=== PATIENT | male | born 1965 | race Hispanic/Latino ===

== ENCOUNTER 2017-05-04 16:53 | Observation (INO) | payer OTHER ==
[2017-05-04] MEDS ORDERED: Sodium Chloride 0.9% 1,000 ML IV STA (17:10)
[2017-05-04] MEDS ORDERED: Iohexol 240 (50 ml) PO ONE (17:10)
--- NOTE | 2017-05-04 17:17 | ED PDOC ---
HPI: Abdomen Time Seen by Provider: 05/04/17 17:01 Chief Complaint (Nursing): Abdominal Pain Chief Complaint (Provider): Abdominal Pain History Per: Patient History/Exam Limitations: no limitations Onset/Duration Of Symptoms: Days Current Symptoms Are (Timing): Still Present Location Of Pain/Discomfort: LLQ Associated Symptoms: Nausea, Diarrhea, Back Pain, Urinary Symptoms Additional Complaint(s): Richard Goodson, 51 year old male presents to the ED for left lower quadrant pain associated with nausea, headache mild, and painful urination. The patient also states he developed diarrhea occurring on Monday and resolving on Monday. The patient denies chest pain, shortness of breath, blurry vision, dizziness, and testicular pain. No back pain. Headache is gone currently. Was not the worst of his life. PMD: None Provided Past Medical History Reviewed: Historical Data, Nursing Documentation, Vital Signs Vital Signs: Last Vital Signs Temp 99.1 F 05/04/17 18:40 Pulse 66 05/04/17 18:40 Resp 18 05/04/17 18:40 BP 131/77 05/04/17 18:40 Pulse Ox 94 L 05/04/17 20:28 - Medical History PMH: Fractures, Gastritis Denies: HIV, Chronic Kidney Disease - Family History Family History: States: Unknown Family Hx - Social History Current smoker - smoking cessation education provided: No Alcohol: None Drugs: Denies - Home Medications Home Medications: Ambulatory Orders Medication Instructions Recorded Omeprazole 20 mg PO BID #0 ecc 11/27/14 Naproxen [Naprosyn] 500 mg PO BID PRN #15 tablet 08/16/16 - Allergies Allergies/Adverse Reactions: Allergies Allergy/AdvReac Type Severity Reaction Status Date / Time No Known Allergies Allergy Verified 10/20/15 23:44 Review of Systems ROS Statement: Except As Marked, All Systems Reviewed And Found Negative Eyes: Negative for: Other (no blurry vision ) Cardiovascular: Negative for: Chest Pain Respiratory: Negative for: Shortness of Breath Gastrointestinal: Positive for: Nausea, Abdominal Pain (to LLQ), Diarrhea Genitourinary Male: Positive for: Dysuria. Negative for: Other (no testicular pain) Neurological: Positive for: Headache. Negative for: Dizziness Physical Exam - Reviewed Nursing Documentation Reviewed: Yes Vital Signs Reviewed: Yes - Physical Exam Appears: Positive for: Non-toxic, No Acute Distress Head Exam: Positive for: ATRAUMATIC, NORMAL INSPECTION, NORMOCEPHALIC Skin: Positive for: Normal Color, Warm, DRY Eye Exam: Positive for: EOMI, Normal appearance, PERRL ENT: Positive for: Normal ENT Inspection Neck: Positive for: Normal, Painless ROM Cardiovascular/Chest: Positive for: Regular Rate, Rhythm Respiratory: Positive for: CNT, Normal Breath Sounds Gastrointestinal/Abdominal: Positive for: Normal Exam, Bowel Sounds, Soft, Tenderness (mild LLQ tenderness ) Back: Positive for: Normal Inspection. Negative for: L CVA Tenderness, R CVA Tenderness, Vertebral Tenderness Extremity: Positive for: Normal ROM Neurologic/Psych: Positive for: Alert, Oriented - Laboratory Results Result Diagrams: 05/04/17 17:00 05/04/17 17:00 Interpretation Of Abn Labs: 12.9 wbc; mild elevated liver enzymes - ECG O2 Sat by Pulse Oximetry: 94 (RA) Pulse Ox Interpretation: Normal - Progress ED Course And Treament: 2044: Stable. AAOx3. Medical Decision Making Medical Decision Making: Impression: Abdominal Pain Plan: * CT Abd Pelvis PO & IV Contrast * Alcohol Serum Stat * COMP Metabolic panel * CBC (With Differential) * Sodium Chloride 0.9% 1,000 mls IV 1,000 mls/hr * Omnipaque 240 (50 ML) PO * Toradol 15 mg IV * Admit to Hospital Routine * Reevaluation Scribe Attestation: Documented by Lore Patel, acting as a scribe for Varun Healy MD. Provider Scribe Attestation: All medical record entries made by the Scribe were at my direction and personally dictated by me. I have reviewed the chart and agree that the record accurately reflects my personal performance of the history, physical exam, medical decision making, and the department course for this patient. I have also personally directed, reviewed, and agree with the discharge instructions and disposition. 2044: Pain free. Tolerated PO. Fu with pcp. ED OBSERVATION Discharge: Yes Date of observation admission: 05/04/17 Time of observation admission: 17:01 - Observation admission statement Patient is being placed in observation because:: Pain eval - Goals of Observation Goals of observation are:: Results of ED workup and eventual disposition. - Progress Note Progress Note: 05/04/17 18:29 Continue monitoring. Eval pending CT and blood work. 05/04/17 19:58 Continue monitoring. Eval pending CT and blood work. Disposition - Clinical Impression Clinical Impression: Abdominal pain, Diarrhea - Patient ED Disposition Is Patient to be Admitted: No Counseled Patient/Family Regarding: Studies Performed, Diagnosis, Need For Followup - Disposition Disposition: Routine/Home Disposition Time: 20:47 Condition: STABLE
[2017-05-04] MEDS ORDERED: Iohexol 240 (50 ml) ONE (17:38)
[2017-05-04 18:00] LABS: BASO % 0.1 % (0.0-2.0); EOS # 0.3 K/uL (0.0-0.7); EOS % 2.6 % (0.0-4.0); HEMOGLOBIN 15.7 g/dL (12.0-18.0); LYMPH # 0.6 K/uL (1.0-4.3); LYMPH % 4.4 % (20.0-40.0); MEAN CELL VOLUME 87.9 fl (80.0-94.0); MEAN PLATELET VOLUME 8.4 fl (7.2-11.7); MONO # 0.9 K/uL (0.0-0.8); MONO % 6.7 % (0.0-10.0); NEUT # 11.1 K/uL (1.8-7.0); NEUT % 86.2 % (50.0-75.0); PLATELET COUNT 221 K/uL (130-400); RBC 5.43 Mil/uL (4.40-5.90); RED CELL DISTRIBUTION WIDTH 13.3 % (11.5-14.5); WHITE BLOOD COUNT 12.9 K/uL (4.8-10.8)
[2017-05-04 18:22] LABS: ALB/GLOB RATIO 1.6 (1.0-2.1); ALBUMIN 4.7 g/dL (3.5-5.0); ALT/SGPT 181 U/L (21-72); AST/SGOT 144 U/L (17-59); BLOOD UREA NITROGEN 19 mg/dl (9-20); CALCIUM 9.3 mg/dL (8.4-10.2); GFR AFRICAN-AMERICAN > 60; GFR NON-AFRICAN AMERICAN > 60
[2017-05-04 18:41] VITALS: TEMP 99.1
[2017-05-04] MEDS ORDERED: Iohexol 300 100 ML IJ ONE (19:12)
[2017-05-04] MEDS ORDERED: Sodium Chloride 0.9% 50 ML IV ONE (19:12)
[2017-05-04 19:29] LABS: EOSINOPHIL 1 % (0-7); LYMPHOCYTE 3 % (20-50); MONOCYTE 8 % (0-10); NEUTROPHIL 88 % (42-75); PLATELET ESTIMATE NORMAL (NORMAL); TOTAL CELLS COUNTED 100
[2017-05-04 19:30] LABS: ANISOCYTOSIS SLIGHT; LARGE PLATELETS PRESENT; TEARDROP CELLS SLIGHT
[2017-05-04 21:07] VITALS: BP 125/70; PULSE 62; RESP 16; O2SAT 100
--- NOTE | 2017-05-05 08:40 | CT ---
PROCEDURE: CT Abdomen and Pelvis with contrast HISTORY: abd pain COMPARISON: None. TECHNIQUE: Contrast dose: 95 mL Omnipaque 300. Axial and reformatted coronal and sagittal CT images of the abdomen and pelvis were obtained after IV and oral contrast administration. Radiation dose: Total exam DLP = 1047.48 mGy-cm. This CT exam was performed using one or more of the following dose reduction techniques: Automated exposure control, adjustment of the mA and/or kV according to patient size, and/or use of iterative reconstruction technique. FINDINGS: LOWER THORAX: Unremarkable. LIVER: Unremarkable. No gross lesion or ductal dilatation. GALLBLADDER AND BILE DUCTS: Unremarkable. PANCREAS: Unremarkable. No gross lesion or ductal dilatation. SPLEEN: Unremarkable. ADRENALS: Unremarkable. No mass. KIDNEYS AND URETERS: Unremarkable. No hydronephrosis. No solid mass. VASCULATURE: Unremarkable. No aortic aneurysm. BOWEL: Mildly dilated small bowel loops with mild wall thickening seen at the left mid abdomen. Correlate clinically for enteritis. Few scattered colonic diverticulosis seen without evidence of diverticulitis. APPENDIX: Normal appendix. PERITONEUM: Unremarkable. No free fluid. No free air. LYMPH NODES: Unremarkable. No enlarged lymph nodes. BLADDER: Unremarkable. REPRODUCTIVE: Unremarkable. BONES: No acute fracture. Sub centimeter sclerotic bony lesions seen at the right femoral neck likely benign bone island OTHER FINDINGS: None. IMPRESSION: Mildly dilated small bowel loops at the left mid abdomen may represent mild enteritis. Otherwise no evidence of acute pathology in the abdomen and pelvis. Preliminary report was submitted by [facility].
== END 2017-05-04 20:47 | disposition home or self-care (01) ==
LOC: H.ER 16:53 → H.EROBSV 17:09
PROVIDERS: ADMIT Emergency Medicine; ATTEND Emergency Medicine
DX: R10.32 Left lower quadrant pain (principal); K29.70 Gastritis, unspecified, without bleeding; R19.7 Diarrhea, unspecified

== ENCOUNTER 2017-08-14 10:39 | Emergency (ER) | payer MEDICAID, OTHER ==
[2017-08-14 10:49] VITALS: BP 123/101; PULSE 63; TEMP 97
[2017-08-14 10:50] VITALS: BMI 28.3
[2017-08-14 11:13] VITALS: O2SAT 98
[2017-08-14] MEDS ORDERED: Sodium Chloride 0.9% 1,000 ML IV STA (12:01)
--- NOTE | 2017-08-14 12:47 | ED PDOC ---
HPI: General Adult Time Seen by Provider: 08/14/17 11:18 Chief Complaint (Nursing): Abdominal Pain History Per: Patient Additional Complaint(s): Pt. states this morning he developed LLQ abdominal pain radiating to his L lower back (not flank) and to his L groin area. Reports pain is worse with movement. Also reports noticing his urine was "orange." Denies flank pain, hematuria, hx of kidney stones, N/V/D, melena, hematochezia, BRBPR, dysuria. Past Medical History Reviewed: Historical Data, Nursing Documentation, Vital Signs Vital Signs: Last Vital Signs Temp 97 F L 08/14/17 10:48 Pulse 63 08/14/17 10:48 Resp BP 123/101 H 08/14/17 10:48 Pulse Ox 98 08/14/17 12:48 - Medical History PMH: Fractures, Gastritis Denies: HIV, Chronic Kidney Disease - Family History Family History: States: Unknown Family Hx - Home Medications Home Medications: Ambulatory Orders Medication Instructions Recorded Omeprazole 20 mg PO BID #0 ecc 11/27/14 Naproxen [Naprosyn] 500 mg PO BID PRN #15 tablet 08/16/16 Ciprofloxacin [Cipro] 500 mg PO BID #14 tab 08/14/17 Dicyclomine [Bentyl] 20 mg PO Q8 PRN #30 tab 08/14/17 metroNIDAZOLE [Flagyl] 500 mg PO BID #14 tab 08/14/17 - Allergies Allergies/Adverse Reactions: Allergies Allergy/AdvReac Type Severity Reaction Status Date / Time No Known Allergies Allergy Verified 08/14/17 11:11 Review of Systems ROS Statement: Except As Marked, All Systems Reviewed And Found Negative Gastrointestinal: Positive for: Abdominal Pain Physical Exam - Reviewed Nursing Documentation Reviewed: Yes Vital Signs Reviewed: Yes - Physical Exam Appears: Positive for: Well, Non-toxic, No Acute Distress Head Exam: Positive for: ATRAUMATIC, NORMAL INSPECTION, NORMOCEPHALIC Skin: Positive for: Normal Color, Warm. Negative for: Rash Eye Exam: Positive for: Normal appearance Neck: Positive for: Normal, Painless ROM Cardiovascular/Chest: Positive for: Regular Rate, Rhythm Respiratory: Positive for: CNT, Normal Breath Sounds Gastrointestinal/Abdominal: Positive for: Normal Exam, Bowel Sounds, Soft, Tenderness (moderate LLQ tenderness) Back: Positive for: Normal Inspection. Negative for: L CVA Tenderness, R CVA Tenderness Extremity: Positive for: Normal ROM Neurologic/Psych: Positive for: Alert, Oriented. Negative for: Aphasia, Facial Droop - Laboratory Results Result Diagrams: 08/14/17 13:05 08/14/17 13:05 - ECG O2 Sat by Pulse Oximetry: 98 - Progress ED Course And Treament: Labs ordered. CT abd/pelvis w/ IV contrast ordered. Toradol 30mg IV, zofran 4mg IV ordered. 1533 CT abd/pelvis w/ IV contrast: 1. Findings most compatible with acute subacute diverticulitis without abscess formation involving the proximal to mid sigmoid segments. Please see discussion above including differential diagnosis. No abscess or free air appreciable. 2. Very small bilateral inguinal hernias contain only fat. Cipro IV, flagyl PO ordered. Pt. reports good relief of pain. Admits to eating a can of peanuts by himself on Monday. Disposition - Clinical Impression Clinical Impression: Diverticulitis - Patient ED Disposition Is Patient to be Admitted: No - Disposition Referrals: Rob Ham [Outside] Nathan Oneil MD, PhD [Staff Provider] - Disposition: Routine/Home Disposition Time: 16:20 Condition: STABLE Prescriptions: Ciprofloxacin [Cipro] 500 mg PO BID #14 tab Dicyclomine [Bentyl] 20 mg PO Q8 PRN #30 tab PRN Reason: abdominal pain metroNIDAZOLE [Flagyl] 500 mg PO BID #14 tab Instructions: Diverticulitis (DC) Forms: [employer] (Welsh) Print Language: AZERBAIJANI
[2017-08-14 13:16] LABS: BASO # 0.1 K/uL (0.0-0.2); BASO % 1.1 % (0.0-2.0); EOS # 0.2 K/uL (0.0-0.7); EOS % 2.5 % (0.0-4.0); HEMOGLOBIN 14.6 g/dL (12.0-18.0); LYMPH # 1.6 K/uL (1.0-4.3); MEAN CELL VOLUME 86.2 fl (80.0-94.0); MEAN CORPUSCULAR HEMOGLOBIN 28.7 pg (27.0-31.0); MEAN CORPUSCULAR HGB CONC 33.4 g/dL (33.0-37.0); MEAN PLATELET VOLUME 8.5 fl (7.2-11.7); MONO # 1.2 K/uL (0.0-0.8); MONO % 11.7 % (0.0-10.0); NEUT # 6.9 K/uL (1.8-7.0); NEUT % 68.7 % (50.0-75.0); RBC 5.08 Mil/uL (4.40-5.90); RED CELL DISTRIBUTION WIDTH 13.3 % (11.5-14.5)
[2017-08-14 13:19] LABS: SQUAMOUS EPITHIAL < 1 /hpf (0-5); URINE BACTERIA RARE (<OCC); URINE BILIRUBIN NEGATIVE (NEGATIVE); URINE BLOOD NEGATIVE (NEGATIVE); URINE CLARITY CLEAR (Clear); URINE COLOR YELLOW (YELLOW); URINE GLUCOSE (UA) NEG (Normal); URINE LEUKOCYTE ESTERASE NEG Leu/uL (Negative); URINE NITRATE NEGATIVE (NEGATIVE); URINE PROTEIN NEGATIVE (NEGATIVE); URINE UROBILINOGEN 0.2-1.0 mg/dL (0.2-1.0)
[2017-08-14 13:27] LABS: ALB/GLOB RATIO 1.5 (1.0-2.1); ALBUMIN 4.4 g/dL (3.5-5.0); ALT/SGPT 43 U/L (21-72); AST/SGOT 29 U/L (17-59); BLOOD UREA NITROGEN 15 mg/dl (9-20); GFR AFRICAN-AMERICAN > 60; GFR NON-AFRICAN AMERICAN > 60
[2017-08-14] MEDS ORDERED: Iohexol 300 100 ML IJ ONE (14:35)
[2017-08-14] MEDS ORDERED: Sodium Chloride 0.9% 50 ML IV ONE (14:35)
[2017-08-14] MEDS ORDERED: Ciprofloxacin 400mg/200ml D5W 400 MG/200 ML BAG IVPB STA (15:33)
--- NOTE | 2017-08-14 15:33 | CT ---
PROCEDURE: CT Abdomen and Pelvis with contrast HISTORY: LLQ pain COMPARISON: Abdomen pelvis CT with contrast 05/04/2017. TECHNIQUE: Following the intravenous administration of iodinated contrast material, a CT examination of the abdomen and pelvis performed from the domes of the diaphragms to the symphysis pubis with reformatted datasets provided not only axial but also sagittal and coronal planes. Oral contrast was not administered as per referring physician request. Contrast dose: Omnipaque 300, 95 cc. Radiation dose: Total exam DLP = 1033.53 mGy-cm. This CT exam was performed using one or more of the following dose reduction techniques: Automated exposure control, adjustment of the mA and/or kV according to patient size, and/or use of iterative reconstruction technique. FINDINGS: LOWER THORAX: Unremarkable. LIVER: Unremarkable. No gross lesion or ductal dilatation. GALLBLADDER AND BILE DUCTS: Unremarkable. PANCREAS: Unremarkable. No gross lesion or ductal dilatation. SPLEEN: Unremarkable. ADRENALS: Unremarkable. No mass. KIDNEYS AND URETERS: Unremarkable. No hydronephrosis. No solid mass. VASCULATURE: Unremarkable. No aortic aneurysm. BOWEL: Moderate fecal loading seen throughout the large bowel without obstruction pattern appreciable. Small bowel is unremarkable grossly. Lack of oral contrast agents limits interpretation however. Thickened proximal to mid sigmoid colon appreciated trace pericolic fluid collection prominent pericolic reaction with associated diverticular disease compatible with acute or subacute diverticulitis. Differential diagnosis does include other infectious or inflammatory causes with ischemia neoplasm not excluded completely, they are not particularly favored either. APPENDIX: Normal appendix. PERITONEUM: Unremarkable. Limited fluid identified in the left pericolic gutter adjacent to inflamed proximal to mid sigmoid colon. No free air. LYMPH NODES: Unremarkable. No enlarged lymph nodes. BLADDER: Unremarkable. REPRODUCTIVE: Unremarkable. BONES: No acute fracture. OTHER FINDINGS: Very small bilateral inguinal hernias identified containing only fat. IMPRESSION: 1. Findings most compatible with acute subacute diverticulitis without abscess formation involving the proximal to mid sigmoid segments. Please see discussion above including differential diagnosis. No abscess or free air appreciable. 2. Very small bilateral inguinal hernias contain only fat.
[2017-08-14] MEDS ORDERED: Ciprofloxacin 400mg/200ml D5W 400 MG/200 ML BAG IVPB ONE (15:51)
== END 2017-08-14 19:20 | disposition home or self-care (01) ==
LOC: H.ER 10:39
DX: K57.92 Diverticulitis of intestine, part unspecified, without perforation or abscess without bleeding (principal); K40.20 Bilateral inguinal hernia, without obstruction or gangrene, not specified as recurrent
CPT/HCPCS: 74177; 80053; 81003; 85025; 87086; 96361; 96374; 96375; 99282; J0744; J1885; J2405; J7040; Q9967

== ENCOUNTER 2017-09-08 11:08 | Emergency (ER) | payer MEDICAID, OTHER ==
[2017-09-08 11:12] VITALS: BP 118/64; PULSE 72; TEMP 96; O2SAT 98
[2017-09-08 11:13] VITALS: BMI 26.2
[2017-09-08 11:34] VITALS: RESP 18
[2017-09-08] MEDS ORDERED: Sodium Chloride 0.9% 1,000 ML IV STA (12:03)
--- NOTE | 2017-09-08 12:26 | ED PDOC ---
HPI: General Adult Time Seen by Provider: 09/08/17 11:17 Chief Complaint (Nursing): Abdominal Pain History Per: Patient Additional Complaint(s): Pt. states since the weekend he's had LLQ abdominal pain. States initially symptoms began with nausea and 1 episode of non-bloody vomiting then pain began. Pain has been constant since then. He has not had any vomiting since the 1st episode but has continued to be nauseous. Pt. states last month he was diagnosed as having diverticulitis via CT but did not require admission and he was dc'd from the ED. Denies melena, hematochezia, BRBPR, previous abdominal surgeries, dysuria, hematuria, trauma, hematemesis. Of note, pt's last BM was yesterday and was normal in consistency but had multiple BM's. Reports 3 days prior to that he was constipated. Past Medical History Reviewed: Historical Data, Nursing Documentation, Vital Signs Vital Signs: Last Vital Signs Temp 96 F L 09/08/17 11:11 Pulse 72 09/08/17 11:11 Resp 18 09/08/17 11:33 BP 118/64 09/08/17 11:11 Pulse Ox 98 09/08/17 12:26 - Medical History PMH: Fractures, Gastritis Denies: HIV, Chronic Kidney Disease - Family History Family History: States: No Known Family Hx - Home Medications Home Medications: Ambulatory Orders Medication Instructions Recorded Omeprazole 20 mg PO BID #0 ecc 11/27/14 Naproxen [Naprosyn] 500 mg PO BID PRN #15 tablet 08/16/16 Ciprofloxacin [Cipro] 500 mg PO BID #14 tab 08/14/17 Dicyclomine [Bentyl] 20 mg PO Q8 PRN #30 tab 08/14/17 metroNIDAZOLE [Flagyl] 500 mg PO BID #14 tab 08/14/17 Ciprofloxacin [Cipro] 500 mg PO BID #14 tab 09/08/17 Dicyclomine [Bentyl] 20 mg PO Q8 PRN #15 tab 09/08/17 Ondansetron ODT [Zofran ODT] 4 mg PO TID #20 odt 09/08/17 metroNIDAZOLE [Flagyl] 500 mg PO BID #14 tab 09/08/17 - Allergies Allergies/Adverse Reactions: Allergies Allergy/AdvReac Type Severity Reaction Status Date / Time No Known Allergies Allergy Verified 09/08/17 11:26 Review of Systems ROS Statement: Except As Marked, All Systems Reviewed And Found Negative Gastrointestinal: Positive for: Abdominal Pain Physical Exam - Reviewed Nursing Documentation Reviewed: Yes Vital Signs Reviewed: Yes - Physical Exam Appears: Positive for: Well, Non-toxic, No Acute Distress Head Exam: Positive for: ATRAUMATIC, NORMAL INSPECTION, NORMOCEPHALIC Skin: Positive for: Normal Color, Warm. Negative for: Rash Eye Exam: Positive for: EOMI, Normal appearance, PERRL ENT: Positive for: Normal ENT Inspection Neck: Positive for: Normal, Painless ROM Cardiovascular/Chest: Positive for: Regular Rate, Rhythm Respiratory: Positive for: CNT, Normal Breath Sounds Gastrointestinal/Abdominal: Positive for: Normal Exam, Bowel Sounds, Soft. Negative for: Tenderness Back: Positive for: Normal Inspection Extremity: Positive for: Normal ROM Neurologic/Psych: Positive for: Alert, Oriented. Negative for: Aphasia, Facial Droop - Laboratory Results Result Diagrams: 09/08/17 12:20 09/08/17 12:20 - ECG O2 Sat by Pulse Oximetry: 98 Disposition - Clinical Impression Clinical Impression: Diverticulitis - Patient ED Disposition Is Patient to be Admitted: No - Disposition Referrals: Nathan Oneil MD, PhD [Staff Provider] - Disposition: Routine/Home Disposition Time: 13:37 Condition: STABLE Additional Instructions: Follow up with Dr. Oneil for further evaluation. Prescriptions: Ciprofloxacin [Cipro] 500 mg PO BID #14 tab Dicyclomine [Bentyl] 20 mg PO Q8 PRN #15 tab PRN Reason: abdominal pain metroNIDAZOLE [Flagyl] 500 mg PO BID #14 tab Ondansetron ODT [Zofran ODT] 4 mg PO TID #20 odt Instructions: Diverticulitis (DC) Forms: [address] (Danish) Print Language: TANZANIAN
[2017-09-08 12:33] LABS: BASO # 0.1 K/uL (0.0-0.2); BASO % 0.7 % (0.0-2.0); EOS # 0.2 K/uL (0.0-0.7); HEMOGLOBIN 14.7 g/dL (12.0-18.0); LYMPH # 1.8 K/uL (1.0-4.3); LYMPH % 19.6 % (20.0-40.0); MEAN CELL VOLUME 86.7 fl (80.0-94.0); MEAN CORPUSCULAR HGB CONC 33.4 g/dL (33.0-37.0); MEAN PLATELET VOLUME 8.1 fl (7.2-11.7); MONO % 10.8 % (0.0-10.0); NEUT % 66.9 % (50.0-75.0); NRBC % 0.4 % (0.0-0.0); RBC 5.08 Mil/uL (4.40-5.90); RED CELL DISTRIBUTION WIDTH 13.3 % (11.5-14.5); WHITE BLOOD COUNT 8.9 K/uL (4.8-10.8)
[2017-09-08 12:49] LABS: ALB/GLOB RATIO 1.5 (1.0-2.1); ALBUMIN 4.4 g/dL (3.5-5.0); ALT/SGPT 46 U/L (21-72); AST/SGOT 39 U/L (17-59); BLOOD UREA NITROGEN 17 mg/dl (9-20); CALCIUM 9.2 mg/dL (8.4-10.2); GFR AFRICAN-AMERICAN > 60; GFR NON-AFRICAN AMERICAN > 60
[2017-09-08 13:03] LABS: URINE BILIRUBIN NEGATIVE (NEGATIVE); URINE BLOOD NEGATIVE (NEGATIVE); URINE CLARITY CLEAR (Clear); URINE COLOR YELLOW (YELLOW); URINE GLUCOSE (UA) NEG (Normal); URINE LEUKOCYTE ESTERASE NEG Leu/uL (Negative); URINE NITRATE NEGATIVE (NEGATIVE); URINE PROTEIN NEGATIVE (NEGATIVE); URINE UROBILINOGEN 0.2-1.0 mg/dL (0.2-1.0)
--- NOTE | 2017-09-08 15:12 | RAD ---
PROCEDURE: Radiographs of the chest and abdomen (obstructive series) HISTORY: abdominal pain COMPARISON: No prior. TECHNIQUE: AP radiograph of the chest, with upright and supine radiographs of the abdomen. FINDINGS: CHEST: Lungs: Mild bibasilar atelectasis left greater than right. Cardiovascular: Normal size heart. No pulmonary vascular congestion. Aorta is mildly ectatic and uncoiled. Pleura: No pleural fluid. No pneumothorax. Other findings: None. ABDOMEN AND PELVIS: Bowel: No evidence of acute mechanical bowel obstruction. Moderately large amount of stool is seen within the descending and to a lesser degree at the splenic flexure and hepatic flexure regions consistent with fecal retention/ constipation. . Free air: None. Bones: Minor multilevel degenerative spondylosis of the lumbosacral spine. Probable small bone island overlying the right intertrochanteric region. Other findings: None. IMPRESSION: Mild bibasilar atelectasis left greater than right. No evidence of acute mechanical bowel obstruction. Findings consistent with fecal retention/constipation.
== END 2017-09-08 13:58 | disposition home or self-care (01) ==
LOC: H.ER 11:08
DX: K57.92 Diverticulitis of intestine, part unspecified, without perforation or abscess without bleeding (principal); K59.00 Constipation, unspecified
CPT/HCPCS: 74022; 80053; 81003; 85025; 96361; 96374; 99284; J2405; J7040

== ENCOUNTER 2017-11-14 18:07 | Observation (INO) | payer MEDICAID, SELFPAY ==
[2017-11-14 18:07] VITALS: BMI 26.2
[2017-11-14 20:00] LABS: BASO # 0.1 K/uL (0.0-0.2); EOS # 0.5 K/uL (0.0-0.7); EOS % 4.7 % (0.0-4.0); HEMOGLOBIN 14.5 g/dL (12.0-18.0); LYMPH # 2.1 K/uL (1.0-4.3); LYMPH % 20.7 % (20.0-40.0); MEAN CELL VOLUME 86.9 fl (80.0-94.0); MEAN CORPUSCULAR HEMOGLOBIN 28.8 pg (27.0-31.0); MEAN CORPUSCULAR HGB CONC 33.1 g/dL (33.0-37.0); MEAN PLATELET VOLUME 8.2 fl (7.2-11.7); MONO % 9.9 % (0.0-10.0); NEUT # 6.4 K/uL (1.8-7.0); NEUT % 63.7 % (50.0-75.0); RBC 5.05 Mil/uL (4.40-5.90); RED CELL DISTRIBUTION WIDTH 13.5 % (11.5-14.5); WHITE BLOOD COUNT 10.1 K/uL (4.8-10.8)
[2017-11-14 20:12] LABS: BLOOD UREA NITROGEN 26 mg/dl (9-20); CALCIUM 9.5 mg/dL (8.4-10.2); GFR AFRICAN-AMERICAN > 60; GFR NON-AFRICAN AMERICAN > 60
[2017-11-14 20:25] LABS: BARBITURATES, UR NEGATIVE (NEGATIVE); BENZODIAZEPINES, UR NEGATIVE (NEGATIVE); OPIATES, UR NEGATIVE (NEGATIVE); PHENCYCLIDINE, UR NEGATIVE (NEGATIVE)
[2017-11-14 20:30] LABS: PARTIAL THROMBOPLASTIN TIME 34.8 Seconds (25.6-37.1)
--- NOTE | 2017-11-14 21:07 | ED PDOC ---
HPI: Chest Pain Time Seen by Provider: 11/14/17 19:20 Chief Complaint (Nursing): Chest Pain Chief Complaint (Provider): Chest pain History Per: Patient History/Exam Limitations: no limitations Onset/Duration Of Symptoms: Hrs Current Symptoms Are (Timing): Still Present Quality: Pressure Associated Symptoms: denies: Nausea, Diaphoresis Additional Complaint(s): 52yo male, with no past medical history, presents to ED stating he developed chest pain after he descended 4 flights of stairs at 4:30pm today. He states the pain is pressure-like and has been intermittently present; he also reports a belching sensation. He denies any shortness of breath, nausea, vomiting or diaphoresis. Of note, patient has history of cocaine use in past and when provider confronted patient about active cocaine use, he reports he has not used in "years". Patient offers no other complaints. Past Medical History Reviewed: Historical Data, Nursing Documentation, Vital Signs Vital Signs: Last Vital Signs Temp 97.6 F 11/15/17 00:30 Pulse 51 L 11/15/17 01:23 Resp 12 11/15/17 01:23 BP 128/76 11/15/17 00:30 Pulse Ox 97 11/15/17 01:23 - Medical History PMH: Fractures, Gastritis Denies: HIV, Chronic Kidney Disease - Surgical History Surgical History: No Surg Hx - Family History Family History: States: Unknown Family Hx - Social History Drugs: Cocaine - Home Medications Home Medications: Ambulatory Orders Medication Instructions Recorded No Known Home Med 11/14/17 - Allergies Allergies/Adverse Reactions: Allergies Allergy/AdvReac Type Severity Reaction Status Date / Time No Known Allergies Allergy Verified 11/14/17 18:39 Review of Systems ROS Statement: Except As Marked, All Systems Reviewed And Found Negative Constitutional: Negative for: Sweats Cardiovascular: Positive for: Chest Pain Respiratory: Negative for: Shortness of Breath Physical Exam - Reviewed Nursing Documentation Reviewed: Yes Vital Signs Reviewed: Yes - Physical Exam Appears: Positive for: Non-toxic Head Exam: Positive for: ATRAUMATIC, NORMAL INSPECTION, NORMOCEPHALIC Skin: Positive for: Normal Color, Warm Eye Exam: Positive for: Normal appearance Neck: Positive for: Supple Cardiovascular/Chest: Positive for: Regular Rate, Rhythm. Negative for: Murmur Respiratory: Positive for: Normal Breath Sounds. Negative for: Wheezing Gastrointestinal/Abdominal: Positive for: Normal Exam Extremity: Positive for: Normal ROM Neurologic/Psych: Positive for: Alert, Oriented - Laboratory Results Result Diagrams: 11/14/17 19:54 11/14/17 19:54 - ECG O2 Sat by Pulse Oximetry: 97 (RA) Pulse Ox Interpretation: Normal Medical Decision Making Medical Decision Making: Impression: 52yo male with chest pain Plan: -- Labs -- CXR -- UDS -- Aspirin 324mg PO -- Pepcid 20 mg IV Time: 2014 UDS results reviewed and patient positive for cocaine. Patient now admitting cocaine use over the weekend. Labs reviewed and within normal limits. Patient to be admitted to OBS-TELE due to chest pain in setting or cocaine use. Dr. Monroe, resident concrete wall grinder operator covering Dr. Osborn aware of case and will evaluate patient. Scribe Attestation: Documented by Tata Hernández acting as a scribe for Van Diaz MD. Provider Attestation: All medical record entries made by the Scribe were at my direction and personally dictated by me. I have reviewed the chart and agree that the record accurately reflects my personal performance of the history, physical exam, medical decision making, and the department course for this patient. I have also personally directed, reviewed, and agree with the discharge instructions and disposition. Disposition - Clinical Impression Clinical Impression: Chest pain, Cocaine abuse - Disposition Disposition Time: 20:15 Condition: STABLE - Pt Status Changed To: Hospital Disposition Of: Observation - POA Present On Arrival: None
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
[2017-11-14] MEDS ORDERED: Oxycodone/Acetaminophen 5/325 mg Tab PO PRN (21:38)
[2017-11-15 05:45] VITALS: RESP 18
[2017-11-15 05:46] LABS: ALB/GLOB RATIO 1.3 (1.0-2.1); ALBUMIN 3.9 g/dL (3.5-5.0); ALT/SGPT 42 U/L (21-72); AST/SGOT 36 U/L (17-59); BLOOD UREA NITROGEN 20 mg/dl (9-20); CALCIUM 9.4 mg/dL (8.4-10.2); GFR AFRICAN-AMERICAN > 60; GFR NON-AFRICAN AMERICAN > 60; HDL CHOLESTEROL 51 MG/DL (30-70)
[2017-11-15 05:47] LABS: LDL CHOLESTEROL 65 mg/dL (0-129)
--- NOTE | 2017-11-15 07:49 | CP.PCM.PN ---
<Bernard Miranda - Last Filed: 11/15/17 10:53> Subjective - Date & Time of Evaluation Date of Evaluation: 11/15/17 Time of Evaluation: 07:20 - Subjective Subjective: The patient was seen and examined bedside this morning. There are no acute events overnight. The patient is laying in bed comfortably, NAD. The patient reports chest pain is improved but sharp at times. Patient denies headaches, dizziness, SOB, abdominal pain, nausea, vomiting, diarrhea, dysuria, or fever. Objective - Vital Signs/Intake and Output Vital Signs (last 24 hours): Temp Pulse Resp BP Pulse Ox 97.8 F 49 L 18 117/71 97 11/15/17 05:44 11/15/17 05:44 11/15/17 05:44 11/15/17 05:44 11/15/17 05:44 - Medications Medications: Current Medications Acetaminophen (Tylenol 325mg Tab) 650 mg PO Q6 PRN PRN Reason: Pain, Mild (1-3) Enoxaparin Sodium (Lovenox) 40 mg SC DAILY CARLOS PRN Reason: Protocol Ibuprofen (Motrin Tab) 600 mg PO Q6 PRN PRN Reason: Pain, moderate (4-7) Oxycodone/Acetaminophen (Percocet 5/325 Mg Tab) 1 tab PO Q4 PRN PRN Reason: Pain, severe (8-10) Stop: 11/17/17 21:39 - Labs Labs: 11/14/17 19:54 11/15/17 04:20 PT 11.0 Seconds (9.8-13.1) 11/14/17 19:54 INR 1.0 (0.9-1.2) 11/14/17 19:54 APTT 34.8 Seconds (25.6-37.1) 11/14/17 19:54 - Constitutional Appears: No Acute Distress - Head Exam Head Exam: ATRAUMATIC, NORMAL INSPECTION, NORMOCEPHALIC - Eye Exam Eye Exam: Normal appearance - ENT Exam ENT Exam: Mucous Membranes Moist - Neck Exam Neck Exam: Full ROM. absent: Tenderness - Respiratory Exam Respiratory Exam: Clear to Ausculation Bilateral. absent: Decreased Breath Sounds, Rales, Rhonchi, Wheezes, Respiratory Distress, Stridor - Cardiovascular Exam Cardiovascular Exam: REGULAR RHYTHM. absent: Tachycardia - GI/Abdominal Exam GI & Abdominal Exam: Soft, Normal Bowel Sounds. absent: Distended, Tenderness - Extremities Exam Extremities Exam: absent: Calf Tenderness, Pedal Edema, Tenderness - Neurological Exam Neurological Exam: Alert, Awake, Oriented x3 - Skin Skin Exam: Dry, Intact, Normal Color, Warm Assessment and Plan - Assessment and Plan (Free Text) Assessment: 52 y/o man w/ no significant pmh admitted for chest pain and cocaine abuse Plan: 1) Chest pain - r/o ACS vs. muscularskeletal strain - last cocaine use 3 days ago - s/p aspirin in ED - EKG: sinus bradycardia. no acute ST elevation/depression, T wave ischemic changes, no prolonged QRS, QTc, or IN - troponin x2 negative - cardiology consulted, Dr Nettles, recommendations appreciated - exercise stress test and echo tomorrow - f/u Troponin, EKG, lipid profile 2) Cocaine Abuse - No withdrawal symptoms. Last use 3 days ago - Ua: +Cocaine - f/u HIV, Hep B,Hep C Labs 3) Prophylactic measures - DVT: Lovenox 40 mg SC daily - GI: PPI <SimaOweno A - Last Filed: 11/17/17 06:56> Objective - Vital Signs/Intake and Output Vital Signs (last 24 hours): Temp Pulse Resp BP Pulse Ox 98.5 F 78 18 124/80 98 11/15/17 13:08 11/15/17 13:08 11/15/17 13:00 11/15/17 13:08 11/15/17 13:00 - Labs Labs: 11/14/17 19:54 11/15/17 04:20 PT 11.0 Seconds (9.8-13.1) 11/14/17 19:54 INR 1.0 (0.9-1.2) 11/14/17 19:54 APTT 34.8 Seconds (25.6-37.1) 11/14/17 19:54 Attending/Attestation - Attestation I have personally seen and examined this patient.: Yes I have fully participated in the care of the patient.: Yes I have reviewed all pertinent clinical information, including history, physical exam and plan: Yes
[2017-11-15] MEDS ORDERED: Enoxaparin 40 mg Syringe SC SCH (09:00)
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
[2017-11-15] MEDS ORDERED: Pantoprazole 20 mg EC Tab PO SCH (10:15)
--- NOTE | 2017-11-15 10:17 | RAD ---
HISTORY: Chest pain COMPARISON: 09/08/2017. FINDINGS: LUNGS: The lungs are well inflated and clear. PLEURA: No significant pleural effusion identified, no pneumothorax apparent. CARDIOVASCULAR: There is mild cardiomegaly. OSSEOUS STRUCTURES: No significant abnormalities. VISUALIZED UPPER ABDOMEN: Normal. OTHER FINDINGS: None. IMPRESSION: No active pulmonary disease.
[2017-11-15 12:49] LABS: HEPATITIS B SURFACE AG Negative (NEGATIVE)
[2017-11-15 13:07] LABS: HEPATITIS C ANTIBODY NEGATIVE (NEGATIVE)
[2017-11-15 13:12] VITALS: BP 124/80; PULSE 78; TEMP 98.5
--- NOTE | 2017-11-15 13:22 | CARD ---
APPROVED REPORT EXAM: Two-dimensional and M-mode echocardiogram with Doppler and color Doppler. Other Information Quality : GoodRhythm : NSR INDICATION Chest Pain 2D DIMENSIONS IVSd1.03 (0.7-1.1cm)LVDd5.31 (3.9-5.9cm) LVOT Diameter2.55 (1.8-2.4cm)PWd1.17 (0.7-1.1cm) IVSs1.72 (0.8-1.2cm)LVDs3.24 (2.5-4.0cm) FS (%) 39.0 %PWs1.88 (0.8-1.2cm) M-Mode DIMENSIONS Left Atrium (MM)4.00 (2.5-4.0cm)IVSd1.32 (0.7-1.1cm) Aortic Root3.44 (2.2-3.7cm)LVDd5.29 (4.0-5.6cm) Aortic Cusp Exc.2.65 (1.5-2.0cm)PWd1.44 (0.7-1.1cm) IVSs1.85 cmFS (%) 37 % LVDs3.35 (2.0-3.8cm)PWs1.79 cm Mitral Valve MV E Nldlkrer84.2cm/sMV DECEL [id number] A Oftuksay07.7cm/s MV QCU30yfJ/A ratio1.9MVA (PHT)3.08cm2 TDI Lateral E' Peak V12.39cm/sMedial E' Peak V8.64cm/sE/Lateral E'4.5 E/Medial E'6.4 Pulmonary Valve PV Peak Vwuhaaaa02.7cm/s Tricuspid Valve TR Peak [id number]/sRAP [id number] Peak Gr.20mmHg [id number] LEFT VENTRICLE The left ventricle is normal in size. There is normal left ventricular wall thickness. The left ventricular function is normal. The left ventricular ejection fraction is - 70%. There is normal LV segmental wall motion. The left ventricular diastolic function is normal. No left ventricle thrombus noted on this study. There is no ventricular septal defect visualized. There is no left ventricular aneurysm. There is no mass noted in the left ventricle. RIGHT VENTRICLE The right ventricle is normal size. There is normal right ventricular wall thickness. The right ventricular systolic function is normal. ATRIA The left atrium size is normal. There is no thrombus suspected in the left atrium. The right atrium size is normal. The interatrial septum is intact with no evidence for an atrial septal defect. AORTIC VALVE The aortic valve is normal in structure. No aortic regurgitation is present. There is no aortic valvular stenosis. MITRAL VALVE The mitral valve is normal in structure. There is no evidence of mitral valve prolapse. There is no mitral valve stenosis. Mitral regurgitation is trace. TRICUSPID VALVE The tricuspid valve is normal in structure. There is mild tricuspid regurgitation. Right ventricular systolic pressure is estimated at 28 mmHg. There is no tricuspid valve prolapse or vegetation. There is no tricuspid valve stenosis. PULMONIC VALVE The pulmonary valve is normal in structure. There is trace pulmonic valvular regurgitation. GREAT VESSELS The aortic root is normal in size. The IVC is normal in size and collapses >50% with inspiration. PERICARDIAL EFFUSION The pericardium appears normal. There is no pleural effusion. <Conclusion> The left ventricle is normal in size and wall thickness. The left ventricular function is normal. The left ventricular ejection fraction is - 70%. The left atrium, right ventricle and right atrium are normal in size. The mitral, aortic and tricuspid valves are normal. There is trace mitral regurgitation and mild tricuspid regurgitation.
[2017-11-15 13:24] VITALS: O2SAT 98
--- NOTE | 2017-11-15 14:06 | CARD ---
APPROVED REPORT EKG Measurement Heart [id number] <Conclusion> Sinus bradycardia Otherwise normal ECG
--- NOTE | 2017-11-15 14:13 | CARD ---
APPROVED REPORT EKG Measurement Heart [id number] <Conclusion> Sinus bradycardia Otherwise normal ECG
--- NOTE | 2017-11-15 15:48 | CP.PCM.DIS ---
<Alexi Ovalle T - Last Filed: 11/15/17 15:45> Provider - Provider Date of Admission: 11/14/17 20:57 Attending physician: Ronen Gao MD Consults: Cardio- Tho Time Spent in preparation of Discharge (in minutes): 25 Diagnosis - Discharge Diagnosis (1) Cocaine abuse Status: Acute (2) Chest pain Status: Acute Hospital Course - Lab Results Lab Results: Most Recent Lab Values WBC 10.1 K/uL (4.8-10.8) 11/14/17 19:54 RBC 5.05 Mil/uL (4.40-5.90) 11/14/17 19:54 Hgb 14.5 g/dL (12.0-18.0) 11/14/17 19:54 Hct 43.9 % (35.0-51.0) 11/14/17 19:54 MCV 86.9 fl (80.0-94.0) 11/14/17 19:54 MCH 28.8 pg (27.0-31.0) 11/14/17 19:54 MCHC 33.1 g/dL (33.0-37.0) 11/14/17 19:54 RDW 13.5 % (11.5-14.5) 11/14/17 19:54 Plt Count 212 K/uL (130-400) 11/14/17 19:54 MPV 8.2 fl (7.2-11.7) 11/14/17 19:54 Neut % (Auto) 63.7 % (50.0-75.0) 11/14/17 19:54 Lymph % (Auto) 20.7 % (20.0-40.0) 11/14/17 19:54 Liberty % (Auto) 9.9 % (0.0-10.0) 11/14/17 19:54 Eos % (Auto) 4.7 % (0.0-4.0) H 11/14/17 19:54 Baso % (Auto) 1.0 % (0.0-2.0) 11/14/17 19:54 Neut # (Auto) 6.4 K/uL (1.8-7.0) 11/14/17 19:54 Lymph # (Auto) 2.1 K/uL (1.0-4.3) 11/14/17 19:54 Liberty # (Auto) 1.0 K/uL (0.0-0.8) H 11/14/17 19:54 Eos # (Auto) 0.5 K/uL (0.0-0.7) 11/14/17 19:54 Baso # (Auto) 0.1 K/uL (0.0-0.2) 11/14/17 19:54 PT 11.0 Seconds (9.8-13.1) 11/14/17 19:54 INR 1.0 (0.9-1.2) 11/14/17 19:54 APTT 34.8 Seconds (25.6-37.1) 11/14/17 19:54 Sodium 141 mmol/l (132-148) 11/15/17 04:20 Potassium 3.8 MMOL/L (3.6-5.0) 11/15/17 04:20 Chloride 104 mmol/L (98-107) 11/15/17 04:20 Carbon Dioxide 27 mmol/L (22-30) 11/15/17 04:20 Anion Gap 14 (10-20) 11/15/17 04:20 BUN 20 mg/dl (9-20) 11/15/17 04:20 Creatinine 0.9 mg/dl (0.8-1.5) 11/15/17 04:20 Est GFR ( Amer) > 60 11/15/17 04:20 Est GFR (Non-Af Amer) > 60 11/15/17 04:20 Random Glucose 91 mg/dL (75-110) 11/15/17 04:20 Calcium 9.4 mg/dL (8.4-10.2) 11/15/17 04:20 Total Bilirubin 0.9 mg/dl (0.2-1.3) 11/15/17 04:20 AST 36 U/L (17-59) 11/15/17 04:20 ALT 42 U/L (21-72) 11/15/17 04:20 Alkaline Phosphatase 62 U/L (38-126) 11/15/17 04:20 Troponin I < 0.0120 ng/mL (0.00-0.120) 11/15/17 13:02 Total Protein 6.9 G/DL (6.3-8.2) 11/15/17 04:20 Albumin 3.9 g/dL (3.5-5.0) 11/15/17 04:20 Globulin 3.0 gm/dL (2.2-3.9) 11/15/17 04:20 Albumin/Globulin Ratio 1.3 (1.0-2.1) 11/15/17 04:20 Triglycerides 68 mg/DL (0-149) 11/15/17 04:20 Cholesterol 135 mg/dL (0-199) 11/15/17 04:20 LDL Cholesterol Direct 65 mg/dL (0-129) 11/15/17 04:20 HDL Cholesterol 51 MG/DL (30-70) 11/15/17 04:20 Urine Opiates Screen Negative (NEGATIVE) 11/14/17 19:53 Urine Methadone Screen Negative (NEGATIVE) 11/14/17 19:53 Ur Barbiturates Screen Negative (NEGATIVE) 11/14/17 19:53 Ur Phencyclidine Scrn Negative (NEGATIVE) 11/14/17 19:53 Ur Amphetamines Screen Negative (NEGATIVE) 11/14/17 19:53 U Benzodiazepines Scrn Negative (NEGATIVE) 11/14/17 19:53 U Oth Cocaine Metabols Positive (NEGATIVE) H 11/14/17 19:53 U Cannabinoids Screen Negative (NEGATIVE) 11/14/17 19:53 Hep Bs Antigen Negative (NEGATIVE) 11/15/17 04:20 Hepatitis C Antibody Negative (NEGATIVE) 11/15/17 04:20 - Hospital Course Hospital Course: 52 yo M w/o PMHx was admitted for chest pain following cocaine abuse. +Cocaine use. EKG shows sinus mica w/o ST elevation/depression, T wave ischemic changes , or other acute changes. Troponin negative x3. Cardiac Stress Test resulted normal. Pt symptoms resolved. Will be discharged home and instructed to follow up with Dr Gao within < 1 week. Discharge Exam - Additional Findings Additional findings: - Constitutional Appears: No Acute Distress - Head Exam Head Exam: ATRAUMATIC, NORMAL INSPECTION, NORMOCEPHALIC - Eye Exam Eye Exam: Normal appearance - ENT Exam ENT Exam: Mucous Membranes Moist - Neck Exam Neck Exam: Full ROM. absent: Tenderness - Respiratory Exam Respiratory Exam: Clear to Ausculation Bilateral. absent: Decreased Breath Sounds, Rales, Rhonchi, Wheezes, Respiratory Distress, Stridor - Cardiovascular Exam Cardiovascular Exam: REGULAR RHYTHM. absent: Tachycardia - GI/Abdominal Exam GI & Abdominal Exam: Soft, Normal Bowel Sounds. absent: Distended, Tenderness - Extremities Exam Extremities Exam: absent: Calf Tenderness, Pedal Edema, Tenderness - Neurological Exam Neurological Exam: Alert, Awake, Oriented x3 - Skin Skin Exam: Dry, Intact, Normal Color, Warm Discharge Plan - Follow Up Plan Condition: STABLE Disposition: HOME/ ROUTINE Instructions: Chest Pain (DC), Cocaine Abuse (DC) Additional Instructions: follow up appt with pmd in 1 week Referrals: Ronen Gao MD [Staff Provider] - <Ronen Gao - Last Filed: 11/17/17 06:57> Provider - Provider Date of Admission: 11/14/17 20:57 Attending physician: Ronen Gao MD Hospital Course - Lab Results Lab Results: Most Recent Lab Values WBC 10.1 K/uL (4.8-10.8) 11/14/17 19:54 RBC 5.05 Mil/uL (4.40-5.90) 11/14/17 19:54 Hgb 14.5 g/dL (12.0-18.0) 11/14/17 19:54 Hct 43.9 % (35.0-51.0) 11/14/17 19:54 MCV 86.9 fl (80.0-94.0) 11/14/17 19:54 MCH 28.8 pg (27.0-31.0) 11/14/17 19:54 MCHC 33.1 g/dL (33.0-37.0) 11/14/17 19:54 RDW 13.5 % (11.5-14.5) 11/14/17 19:54 Plt Count 212 K/uL (130-400) 11/14/17 19:54 MPV 8.2 fl (7.2-11.7) 11/14/17 19:54 Neut % (Auto) 63.7 % (50.0-75.0) 11/14/17 19:54 Lymph % (Auto) 20.7 % (20.0-40.0) 11/14/17 19:54 Liberty % (Auto) 9.9 % (0.0-10.0) 02/13/18 19:54 Eos % (Auto) 4.7 % (0.0-4.0) H 11/14/17 19:54 Baso % (Auto) 1.0 % (0.0-2.0) 11/14/17 19:54 Neut # (Auto) 6.4 K/uL (1.8-7.0) 11/14/17 19:54 Lymph # (Auto) 2.1 K/uL (1.0-4.3) 11/14/17 19:54 Liberty # (Auto) 1.0 K/uL (0.0-0.8) H 11/14/17 19:54 Eos # (Auto) 0.5 K/uL (0.0-0.7) 11/14/17 19:54 Baso # (Auto) 0.1 K/uL (0.0-0.2) 11/14/17 19:54 PT 11.0 Seconds (9.8-13.1) 11/14/17 19:54 INR 1.0 (0.9-1.2) 11/14/17 19:54 APTT 34.8 Seconds (25.6-37.1) 11/14/17 19:54 Sodium 141 mmol/l (132-148) 11/15/17 04:20 Potassium 3.8 MMOL/L (3.6-5.0) 11/15/17 04:20 Chloride 104 mmol/L (98-107) 11/15/17 04:20 Carbon Dioxide 27 mmol/L (22-30) 11/15/17 04:20 Anion Gap 14 (10-20) 11/15/17 04:20 BUN 20 mg/dl (9-20) 11/15/17 04:20 Creatinine 0.9 mg/dl (0.8-1.5) 11/15/17 04:20 Est GFR ( Amer) > 60 11/15/17 04:20 Est GFR (Non-Af Amer) > 60 11/15/17 04:20 Random Glucose 91 mg/dL (75-110) 11/15/17 04:20 Calcium 9.4 mg/dL (8.4-10.2) 11/15/17 04:20 Total Bilirubin 0.9 mg/dl (0.2-1.3) 11/15/17 04:20 AST 36 U/L (17-59) 11/15/17 04:20 ALT 42 U/L (21-72) 11/15/17 04:20 Alkaline Phosphatase 62 U/L (38-126) 11/15/17 04:20 Troponin I < 0.0120 ng/mL (0.00-0.120) 11/15/17 13:02 Total Protein 6.9 G/DL (6.3-8.2) 11/15/17 04:20 Albumin 3.9 g/dL (3.5-5.0) 11/15/17 04:20 Globulin 3.0 gm/dL (2.2-3.9) 11/15/17 04:20 Albumin/Globulin Ratio 1.3 (1.0-2.1) 11/15/17 04:20 Triglycerides 68 mg/DL (0-149) 11/15/17 04:20 Cholesterol 135 mg/dL (0-199) 11/15/17 04:20 LDL Cholesterol Direct 65 mg/dL (0-129) 11/15/17 04:20 HDL Cholesterol 51 MG/DL (30-70) 11/15/17 04:20 Urine Opiates Screen Negative (NEGATIVE) 11/14/17 19:53 Urine Methadone Screen Negative (NEGATIVE) 11/14/17 19:53 Ur Barbiturates Screen Negative (NEGATIVE) 11/14/17 19:53 Ur Phencyclidine Scrn Negative (NEGATIVE) 11/14/17 19:53 Ur Amphetamines Screen Negative (NEGATIVE) 11/14/17 19:53 U Benzodiazepines Scrn Negative (NEGATIVE) 11/14/17 19:53 U Oth Cocaine Metabols Positive (NEGATIVE) H 11/14/17 19:53 U Cannabinoids Screen Negative (NEGATIVE) 11/14/17 19:53 Hep Bs Antigen Negative (NEGATIVE) 11/15/17 04:20 Hep Bs Antibody Negative (NEGATIVE) 11/15/17 04:20 Hepatitis C Antibody Negative (NEGATIVE) 11/15/17 04:20 HIV 1&2 Ag/Ab, 4th Gen Nonreactive (Nonreactive) 11/15/17 04:20 Attending/Attestation - Attestation I have personally seen and examined this patient.: Yes I have fully participated in the care of the patient.: Yes I have reviewed all pertinent clinical information, including history, physical exam and plan: Yes
--- NOTE | 2017-11-16 11:33 | CARD ---
APPROVED REPORT Protocol: RAFAEL Test Type: Treadmill Stress Test Attending Physician: Dr. GUILLERMO Referring Physician: Dr. WILLIAM Technologist: Alessandro Huertas Test Indications: CHEST PAIN Medications: ASA 324mg, Pepcid 20mg Medical History: EGD multiple times for foreign boies, B/L carpal tunnel surgery, L shoulder surgry, Titanium plate right side head from trauma, ETOH, Rect drugs cocaine for many yearss 2x/month. Target HR: 168 bpm Resting ECG: normal Resting Heart Rate: 63 bpm Resting Blood Pressure: 124/80mmHg submaximum (85%): 143 bpm TEST SUMMARY [id number]. [id number]. [id number]/80.0. [id number]/80.0. EXERCISESTAGE 103:[id number]/84.0. EXERCISESTAGE 203:[id number]/80.0. EXERCISESTAGE 303:[id number]/80.0. EXERCISESTAGE 400:[id number]/80.0. [id number]/80.0. POST EXERCISE Reason for Termination: Fatigue, DIZZINESS Target HR: NoMax HR: 99 bpm59% of Maximum Predicted HR: 168 bpm Exercise duration: 4 Stage09:28 min:secExercise capacity: 10.8METs Max Blood Pressure: 180/80mmHg Blood Pressure response to exercise: normal resting BP - appropriate response Heart Rate response to exercise: appropriate Chest Pain: NononeAngina index: 0 Arrhythmia: Nonone ST Change: NononeDeviation: 0 mm INTERPRETATION Stress EKG Conclusion: The patient exercised for 9:28 on the Rafael Protocol peak HR 99 bpm 59 % of the maximum predicted HR ( 10.8 mets) Test stopped due to dizzness and hip pain. No chest pain reported Normal Functional Aerobic Capacity Normal HR and BP response No arrythmias Normal Sinus Rhythm baseline/ Normal upsloping st-t segments with exercise No arrythmimas
== END 2017-11-15 16:00 | disposition home or self-care (01) ==
LOC: H.ER 18:07 → H.ERHOLD 20:57 → H.TEL 23:57
PROVIDERS: ADMIT Family Medicine; ATTEND Family Medicine
DX: T40.5X1A Poisoning by cocaine, accidental (unintentional), initial encounter (principal); R07.9 Chest pain, unspecified; F14.10 Cocaine abuse, uncomplicated; K29.70 Gastritis, unspecified, without bleeding
CPT/HCPCS: 36415; 71045; 80048; 80053; 80061; 80324; 80345; 80346; 80349; 80353; 80358; 80361; 83992; 84484; 85025; 85610; 85730; 86706; 86803; 87340; 87389; 93005; 93017; 93306; 99283; G0378; J1650

== ENCOUNTER 2018-01-09 19:58 | Emergency (ER) | payer MEDICAID, OTHER ==
[2018-01-09 19:58] VITALS: BMI 26.2
[2018-01-09 21:41] VITALS: BP 131/77; PULSE 53; RESP 18; TEMP 97.9; O2SAT 97
[2018-01-09] MEDS ORDERED: Lidocaine 5% Patch TD STA (22:32)
[2018-01-09] MEDS ORDERED: Lidocaine 5% Patch TD ONE (22:55)
--- NOTE | 2018-01-09 23:00 | ED PDOC ---
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 Patient reports associated nausea and decrease in appetite but denies any vomiting, diarrhea, urinary complaints, taking medication for relief, numbness or weakness of the lower extremities. He also notes having had constipation and subjective fever that resolved on its own 4 days ago. Patient is concerned for diverticulitis as he has had it in the past. PMD: Mary Ann Patel MD Past Medical History Reviewed: Historical Data, Nursing Documentation, Vital Signs Vital Signs: Last Vital Signs Temp 97.9 F 01/09/18 21:37 Pulse 53 L 01/09/18 21:37 Resp 18 01/09/18 21:37 BP 131/77 01/09/18 21:37 Pulse Ox 97 01/09/18 21:37 - Medical History PMH: Diverticulitis, Fractures, Gastritis Denies: HIV, Chronic Kidney Disease - Surgical History Surgical History: Denies: No Surg Hx Other surgeries: facial reconstruction; b/l carpal tunnel; shoulder - Family History Family History: States: Unknown Family Hx - Social History Current smoker - smoking cessation education provided: No Ex-Smoker (has not smoked in the last 12 months): No Alcohol: Social Drugs: Cocaine - Home Medications Home Medications: Ambulatory Orders Medication Instructions Recorded Acetaminophen [Tylenol Extra 1,000 mg PO Q6 PRN #100 tablet 01/10/18 Strength] Cyclobenzaprine [Flexeril] 5 mg PO Q8 PRN #15 tab 01/10/18 Dicyclomine [Bentyl] 20 mg PO BID PRN #30 tab 01/10/18 Ibuprofen [Motrin Tab] 600 mg PO Q8 PRN #30 tab 01/10/18 Lidocaine 5% [Lidoderm] 1 ea TD DAILY PRN #20 patch 01/10/18 - Allergies Allergies/Adverse Reactions: Allergies Allergy/AdvReac Type Severity Reaction Status Date / Time No Known Allergies Allergy Verified 11/14/17 18:39 Review of Systems ROS Statement: Except As Marked, All Systems Reviewed And Found Negative (and as per HPI) Constitutional: Positive for: Fever (subjective-resolved) Gastrointestinal: Positive for: Nausea, Abdominal Pain (lower), Constipation ( resolved), Other (decreased appetite). Negative for: Vomiting, Diarrhea Genitourinary Male: Negative for: Dysuria, Incontinence, Hematuria Musculoskeletal: Positive for: Back Pain (mid to low) Neurological: Negative for: Weakness (lower extremities), Numbness (lower extremities) Physical Exam - Reviewed Nursing Documentation Reviewed: Yes Vital Signs Reviewed: Yes - Physical Exam Appears: Positive for: Non-toxic, No Acute Distress Head Exam: Positive for: ATRAUMATIC, NORMOCEPHALIC Skin: Positive for: Warm, Dry Eye Exam: Positive for: EOMI, PERRL ENT: Negative for: Pharyngeal Erythema, Tonsillar Exudate Neck: Positive for: Painless ROM, Supple Cardiovascular/Chest: Positive for: Regular Rate, Rhythm. Negative for: Murmur Respiratory: Positive for: Normal Breath Sounds. Negative for: Respiratory Distress Gastrointestinal/Abdominal: Positive for: Soft, Tenderness (suprapubic mildly). Negative for: Mass, Distended, Guarding, Rebound Back: Positive for: Vertebral Tenderness (mid-line; lumbosacral; bilateral paraspinal). Negative for: Other (crepitus or step-off) Extremity: Positive for: Normal ROM (5/5 strength of lower extremities). Negative for: Other ((-)straight-leg raise bilaterally) Lymphatic: Negative for: Adenopathy Neurologic/Psych: Positive for: Alert, Oriented (x3). Negative for: Motor/ Sensory Deficits - Laboratory Results Result Diagrams: 01/09/18 22:55 01/09/18 22:55 - ECG O2 Sat by Pulse Oximetry: 97 (RA) Pulse Ox Interpretation: Normal Medical Decision Making Medical Decision Making: Initial Impression: Acute low back pain Differential Diagnosis: Lumbar radiculopathy; Muscle strain; UTI; Cystitis; Diverticulitis Initial Plan: * Alcohol serum * CMP * Drug screen, urine * Lipase * Urine dipstick * CBC * Flexeril 10mg PO * Lidoderm * Toradol 30mg IVP * Tylenol 975mg PO No emergently significant lab abnormalities 11p On reeval Pt still in no distress. sleeping comfortably. dw pt findings and plan of care. Scribe Attestation: Documented by Twila Mccabe, acting as a scribe for Geetha Dowell MD. Provider Scribe Attestation: All medical record entries made by the Scribe were at my direction and personally dictated by me. I have reviewed the chart and agree that the record accurately reflects my personal performance of the history, physical exam, medical decision making, and the department course for this patient. I have also personally directed, reviewed, and agree with the discharge instructions and disposition. Disposition - Clinical Impression Clinical Impression: Lumbar radiculopathy Counseled Patient/Family Regarding: Studies Performed, Diagnosis, Need For Followup, Rx Given - Disposition Referrals: Mary Ann Patel MD [Family Provider] - (CALL YOUR DOCTOR TOMORROW FOR REEVALUATION BY THE END OF THE WEEK) Disposition: Routine/Home Disposition Time: 00:09 Condition: IMPROVED Prescriptions: Acetaminophen [Tylenol Extra Strength] 1,000 mg PO Q6 PRN #100 tablet PRN Reason: FEVER OR PAIN Cyclobenzaprine [Flexeril] 5 mg PO Q8 PRN #15 tab PRN Reason: muscle spasm Dicyclomine [Bentyl] 20 mg PO BID PRN #30 tab PRN Reason: abdominal pain Ibuprofen [Motrin Tab] 600 mg PO Q8 PRN #30 tab PRN Reason: Pain, Moderate (4-7) Lidocaine 5% [Lidoderm] 1 ea TD DAILY PRN #20 patch PRN Reason: PAIN Instructions: Radiculopathy (DC)
[2018-01-09 23:48] LABS: BASO % 0.6 % (0.0-2.0); EOS # 0.4 K/uL (0.0-0.7); EOS % 4.8 % (0.0-4.0); HEMOGLOBIN 13.8 g/dL (12.0-18.0); LYMPH % 27.1 % (20.0-40.0); MEAN CELL VOLUME 87.1 fl (80.0-94.0); MEAN CORPUSCULAR HEMOGLOBIN 29.3 pg (27.0-31.0); MEAN CORPUSCULAR HGB CONC 33.6 g/dL (33.0-37.0); MEAN PLATELET VOLUME 8.5 fl (7.2-11.7); MONO # 1.1 K/uL (0.0-0.8); MONO % 15.4 % (0.0-10.0); NEUT # 3.8 K/uL (1.8-7.0); NEUT % 52.1 % (50.0-75.0); NRBC % 0.1 % (0.0-0.0); RBC 4.71 Mil/uL (4.40-5.90); RED CELL DISTRIBUTION WIDTH 13.5 % (11.5-14.5); WHITE BLOOD COUNT 7.4 K/uL (4.8-10.8)
[2018-01-09 23:56] LABS: ALB/GLOB RATIO 1.3 (1.0-2.1); ALBUMIN 3.9 g/dL (3.5-5.0); ALT/SGPT 65 U/L (21-72); AST/SGOT 53 U/L (17-59); BLOOD UREA NITROGEN 22 mg/dl (9-20); GFR AFRICAN-AMERICAN > 60; GFR NON-AFRICAN AMERICAN > 60; LIPASE 107 U/L (23-300)
[2018-01-10 00:07] LABS: BARBITURATES, UR NEGATIVE (NEGATIVE); BENZODIAZEPINES, UR NEGATIVE (NEGATIVE); OPIATES, UR NEGATIVE (NEGATIVE); PHENCYCLIDINE, UR NEGATIVE (NEGATIVE)
== END 2018-01-10 00:35 | disposition home or self-care (01) ==
LOC: H.ER 19:58
DX: M54.16 Radiculopathy, lumbar region (principal); Z87.891 Personal history of nicotine dependence
CPT/HCPCS: 80053; 80320; 80324; 80345; 80346; 80349; 80353; 80358; 80361; 83690; 83992; 85025; 96374; 99283; J1885

== ENCOUNTER 2018-02-17 15:32 | Emergency (ER) | payer MEDICAID, OTHER ==
[2018-02-17 15:32] VITALS: BMI 26.2
[2018-02-17] MEDS ORDERED: Tdap Vaccine 0.5 ml Vial (10-64 yrs) IM ONE (15:43)
--- NOTE | 2018-02-17 15:53 | ED PDOC ---
HPI: Head Injury Time Seen by Provider: 02/17/18 15:40 Chief Complaint (Nursing): Abnormal Skin Integrity Chief Complaint (Provider): Head Injury History Per: Patient History/Exam Limitations: no limitations Onset/Duration Of Symptoms: Hrs Patient States: Cut With Object Additional Complaint(s): 52 year old male presented to ED complaining of a head injury after hitting a metal shelf today. Patient reports having a headache and feeling dizzy since he felt like he could not hear. He indicates he is not on any blood thinners and he had a previous head injury where he cracked his skull in 2004. PCP: Dr. Mary Ann Gee Past Medical History Reviewed: Historical Data, Nursing Documentation, Vital Signs Vital Signs: Last Vital Signs Temp 98.1 F 02/17/18 15:33 Pulse 61 02/17/18 15:33 Resp 16 02/17/18 15:33 BP 134/90 02/17/18 15:33 Pulse Ox 100 02/17/18 15:33 - Medical History PMH: Diverticulitis, Fractures, Gastritis Denies: HIV, Chronic Kidney Disease - Surgical History Surgical History: No Surg Hx - Family History Family History: States: Unknown Family Hx - Home Medications Home Medications: Ambulatory Orders Medication Instructions Recorded Acetaminophen [Tylenol Extra 1,000 mg PO Q6 PRN #100 tablet 01/10/18 Strength] Cyclobenzaprine [Flexeril] 5 mg PO Q8 PRN #15 tab 01/10/18 Dicyclomine [Bentyl] 20 mg PO BID PRN #30 tab 01/10/18 Ibuprofen [Motrin Tab] 600 mg PO Q8 PRN #30 tab 01/10/18 Lidocaine 5% [Lidoderm] 1 ea TD DAILY PRN #20 patch 01/10/18 - Allergies Allergies/Adverse Reactions: Allergies Allergy/AdvReac Type Severity Reaction Status Date / Time No Known Allergies Allergy Verified 11/14/17 18:39 Review of Systems ROS Statement: Except As Marked, All Systems Reviewed And Found Negative Musculoskeletal: Positive for: Other (Head injury) Neurological: Positive for: Headache, Dizziness Physical Exam - Reviewed Nursing Documentation Reviewed: Yes Vital Signs Reviewed: Yes - Physical Exam Appears: Positive for: Non-toxic, No Acute Distress Skin: Positive for: Normal Color, Warm, Dry Eye Exam: Positive for: Normal appearance Neck: Positive for: Normal, Painless ROM Extremity: Positive for: Normal ROM Neurologic/Psych: Positive for: Alert, Oriented Comments: HEAD: 5cm laceration noted on superior aspect of the scalp. - ECG O2 Sat by Pulse Oximetry: 100 (RA) Pulse Ox Interpretation: Normal - Progress ED Course And Treament: HEAD CT: NAD Medical Decision Making Medical Decision Making: Initial Impression: Head injury Initial Plan: CT Head Tetanus 0.5ml IM Tylenol 650mg PO Scribe Attestation: Documented by Roedrick Patel acting as a scribe for Meli APARICIO. Provider Scribe Attestation: All medical record entries made by the Scribe were at my direction and personally dictated by me. I have reviewed the chart and agree that the record accurately reflects my personal performance of the history, physical exam, medical decision making, and the department course for this patient. I have also personally directed, reviewed, and agree with the discharge instructions and disposition. Procedures - Laceration/Wound Repair Head Wound Length (cm): 5 Wound's Depth, Shape: linear Wound Repaired With: Xochitl Number of Sutures: 5 (xochitl) Wound Complexity: Simple Disposition - Clinical Impression Clinical Impression: Head injury, Scalp laceration - Patient ED Disposition Is Patient to be Admitted: No - Disposition Disposition: Routine/Home Disposition Time: 16:39 Condition: FAIR Additional Instructions: RETURN TO ED OR F/U WITH URGENT CARE/ PMD IN 7 TO 10 DAYS FOR REMOVAL OF XOCHITL Instructions: Closed Head Injury (DC), Minor Head Injury, Laceration Repair With [place] (DC) Forms: [employer] (Lao)
--- NOTE | 2018-02-17 16:23 | CT ---
PROCEDURE: CT HEAD WITHOUT CONTRAST. HISTORY: HEAD INJURY COMPARISON: None available. TECHNIQUE: Axial computed tomography images were obtained through the head/brain without intravenous contrast. Radiation dose: Total exam DLP = 859.18 mGy-cm. This CT exam was performed using one or more of the following dose reduction techniques: Automated exposure control, adjustment of the mA and/or kV according to patient size, and/or use of iterative reconstruction technique. FINDINGS: HEMORRHAGE: No intracranial hemorrhage. BRAIN: No mass effect or edema. No atrophy or chronic microvascular ischemic changes. VENTRICLES: Unremarkable. No hydrocephalus. CALVARIUM: Unremarkable. PARANASAL SINUSES: Unremarkable as visualized. No significant inflammatory changes. MASTOID AIR CELLS: Unremarkable as visualized. No inflammatory changes. OTHER FINDINGS: None. IMPRESSION: Normal CT of the Head. No acute intracranial hemorrhage.
[2018-02-17 17:14] VITALS: BP 132/86; PULSE 75; RESP 18; TEMP 98.7; O2SAT 99
== END 2018-02-17 17:13 | disposition home or self-care (01) ==
LOC: H.ER 15:32
DX: S01.01XA Laceration without foreign body of scalp, initial encounter (principal); W22.8XXA Striking against or struck by other objects, initial encounter; Y92.89 Other specified places as the place of occurrence of the external cause

== ENCOUNTER 2018-03-01 10:34 | Emergency (ER) | payer MEDICAID, OTHER ==
[2018-03-01 10:34] VITALS: BMI 26.2
--- NOTE | 2018-03-01 11:16 | ED PDOC ---
HPI: General Adult Time Seen by Provider: 03/01/18 11:13 Chief Complaint (Nursing): Abnormal Skin Integrity Chief Complaint (Provider): staple removal History Per: Patient (52 y/o male here with scalp laceration repaired 12 days prior. Denies any fever/chills/no complaints regarding wound.) Past Medical History Reviewed: Historical Data, Nursing Documentation, Vital Signs Vital Signs: Last Vital Signs Temp 97.4 F L 03/01/18 10:43 Pulse 57 L 03/01/18 10:43 Resp 20 03/01/18 10:43 BP 122/76 03/01/18 10:43 Pulse Ox 97 03/01/18 10:43 - Medical History PMH: Diverticulitis, Fractures, Gastritis Denies: HIV, Chronic Kidney Disease - Family History Family History: States: Unknown Family Hx - Home Medications Home Medications: Ambulatory Orders Medication Instructions Recorded Acetaminophen [Tylenol Extra 1,000 mg PO Q6 PRN #100 tablet 01/10/18 Strength] Cyclobenzaprine [Flexeril] 5 mg PO Q8 PRN #15 tab 01/10/18 Dicyclomine [Bentyl] 20 mg PO BID PRN #30 tab 01/10/18 Ibuprofen [Motrin Tab] 600 mg PO Q8 PRN #30 tab 01/10/18 Lidocaine 5% [Lidoderm] 1 ea TD DAILY PRN #20 patch 01/10/18 - Allergies Allergies/Adverse Reactions: Allergies Allergy/AdvReac Type Severity Reaction Status Date / Time No Known Allergies Allergy Verified 03/01/18 11:02 Review of Systems ROS Statement: Except As Marked, All Systems Reviewed And Found Negative Physical Exam - Reviewed Nursing Documentation Reviewed: Yes Vital Signs Reviewed: Yes - Physical Exam Appears: Positive for: Well, Non-toxic, No Acute Distress Head Exam: Positive for: NORMAL INSPECTION, NORMOCEPHALIC. Negative for: ATRAUMATIC (Five dustin noted intact. No signs of erythema/swelling) Skin: Positive for: Normal Color, Warm, DRY Eye Exam: Positive for: EOMI, Normal appearance, PERRL ENT: Positive for: Normal ENT Inspection Neck: Positive for: Normal, Painless ROM Cardiovascular/Chest: Positive for: Regular Rate, Rhythm Respiratory: Positive for: CNT, Normal Breath Sounds Gastrointestinal/Abdominal: Positive for: Normal Exam, Soft Back: Positive for: Normal Inspection Extremity: Positive for: Normal ROM Neurologic/Psych: Positive for: Alert, Oriented - ECG O2 Sat by Pulse Oximetry: 97 - Progress ED Course And Treament: [place] removed without difficulty. Disposition - Clinical Impression Clinical Impression: Removal of dustin - Patient ED Disposition Is Patient to be Admitted: No - Disposition Disposition: Routine/Home Disposition Time: 11:16 Condition: FAIR Instructions: Staple Removal
[2018-03-01 12:12] VITALS: BP 119/70; PULSE 61; RESP 19; TEMP 97.9; O2SAT 100
== END 2018-03-01 11:38 | disposition home or self-care (01) ==
LOC: H.ER 10:34
DX: Z48.02 Encounter for removal of sutures (principal)

== ENCOUNTER 2018-06-19 17:53 | Emergency (ER) | payer MEDICAID, OTHER ==
[2018-06-19 17:53] VITALS: BMI 26.2
[2018-06-19 17:56] VITALS: BP 145/89; PULSE 68; RESP 16; TEMP 98.6; O2SAT 98
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
--- NOTE | 2018-06-19 20:25 | ED PDOC ---
Lower Extremity Pain/Injury Time Seen by Provider: 06/19/18 18:20 Chief Complaint (Nursing): Lower Extremity Problem/Injury Chief Complaint (Provider): Lower Extremity Problem/Injury History Per: Patient History/Exam Limitations: no limitations Onset/Duration Of Symptoms: Days (x2) Current Symptoms Are (Timing): Still Present Additional Complaint(s): 53 year old male arrives to ED via EMT for an evaluation of right foot pain status post stepping on a loose screw from his couch yesterday. He reports working all day today when pain exacerbated. Tetanus vaccine administered in ED on 01/2018. He additionally reports small ulcer lesions between 2nd and 3rd webs of toes. PMD: Dr. Mary Ann Patel Past Medical History Reviewed: Historical Data, Nursing Documentation, Vital Signs Vital Signs: Last Vital Signs Temp 98.6 F 06/19/18 17:54 Pulse 68 06/19/18 17:54 Resp 16 06/19/18 17:54 BP 145/89 06/19/18 17:54 Pulse Ox 98 06/19/18 17:54 - Medical History PMH: Diverticulitis, Fractures, Gastritis Denies: HIV, Chronic Kidney Disease - Family History Family History: States: Unknown Family Hx - Home Medications Home Medications: Ambulatory Orders Medication Instructions Recorded Acetaminophen [Tylenol Extra 1,000 mg PO Q6 PRN #100 tablet 01/10/18 Strength] Cyclobenzaprine [Flexeril] 5 mg PO Q8 PRN #15 tab 01/10/18 Dicyclomine [Bentyl] 20 mg PO BID PRN #30 tab 01/10/18 Ibuprofen [Motrin Tab] 600 mg PO Q8 PRN #30 tab 01/10/18 Lidocaine 5% [Lidoderm] 1 ea TD DAILY PRN #20 patch 01/10/18 Cephalexin [Keflex] 500 mg PO QID #28 capsule 06/19/18 - Allergies Allergies/Adverse Reactions: Allergies Allergy/AdvReac Type Severity Reaction Status Date / Time No Known Allergies Allergy Verified 06/19/18 17:54 Review of Systems ROS Statement: Except As Marked, All Systems Reviewed And Found Negative Musculoskeletal: Positive for: Foot Pain (right-sided) Physical Exam - Reviewed Nursing Documentation Reviewed: Yes Vital Signs Reviewed: Yes - Physical Exam Appears: Positive for: Non-toxic, No Acute Distress Extremity: Positive for: Other (mild ulcer lesions between 2nd-3rd toe webs without surrounding erythema; 1.5cm blister with ecchymotic region by heel on plantar surface of right foot) Neurologic/Psych: Positive for: Alert (x3), Oriented. Negative for: Motor/ Sensory Deficits - ECG O2 Sat by Pulse Oximetry: 98 (RA) Pulse Ox Interpretation: Normal Medical Decision Making Medical Decision Makin Initial Plan: * XR foot (right) * Podiatry consult 1808 --XR right foot interpreted by provider: (-) foreign body. 2199 --Podiatry resident, Dr. Espino, evaluated patient at bedside. Case was discussed with Dr. Benavidez whom recommends to drain blister and discharge with Rx for Keflex. Advised patient to follow up with Dr. Hughes in 1-2 days. Counseling was provided and all questions were answered regarding diagnosis. There is agreement to discharge plan. Return if symptoms persist or worsen. Scribe Attestation: Documented by Twila Mccabe, acting as a scribe for Meli Bojorquez PA-C. Provider Scribe Attestation: All medical record entries made by the Scribe were at my direction and personally dictated by me. I have reviewed the chart and agree that the record accurately reflects my personal performance of the history, physical exam, medical decision making, and the department course for this patient. I have also personally directed, reviewed, and agree with the discharge instructions and disposition Disposition - Clinical Impression Clinical Impression: Blister, Callus of heel - Patient ED Disposition Is Patient to be Admitted: No Counseled Patient/Family Regarding: Studies Performed, Diagnosis, Need For Followup, Rx Given - Disposition Referrals: Siddhartha Hughes DPM [Staff Provider] - Disposition: Routine/Home Disposition Time: 22:00 Condition: FAIR Prescriptions: Cephalexin [Keflex] 500 mg PO QID #28 capsule Instructions: Corns and Calluses, Blisters Forms: [facility] ED School/Work Excuse
--- NOTE | 2018-06-20 10:52 | RAD ---
Date of service: 06/19/2018 PROCEDURE: Right Foot Radiographs. HISTORY: EVALUATE FOR FOREIGN BODY RIGHT HEEL COMPARISON: None. FINDINGS: BONES: Bone alignment and mineralization are normal. There is no acute displaced fracture or bone destruction. JOINTS: Normal. SOFT TISSUES: No evidence of radiopaque foreign body in the soft tissues of the heel. OTHER FINDINGS: None. IMPRESSION: No radiopaque foreign body in the heel.
== END 2018-06-19 20:20 | disposition home or self-care (01) ==
LOC: H.ER 17:53
DX: L13.9 Bullous disorder, unspecified (principal)